=== PATIENT | female | born 1935 | race Caucasian/White ===

== ENCOUNTER → 2018-02-24 | Outpatient (CLI) | payer OTHER, BC ==
[~2018-02-24] MED LIST: ASPI81TA28 PO; BIOTCAP2; CALC-51; CHOL1000 PO; CYAN10005 PO; CYCL0.052 OP; FLUT0.15; FOLI1TAB8 PO; HYDR25TA4 PO; MULT-845; NXM/40 PO; ZOLE5INJ
--- NOTE | 2018-02-24 14:04 | DIAGNOSTIC IMAGING REPORT ---
LUMBAR SPINE W/O CONTRAST CLINICAL HISTORY: 82 years-old Female with DENGENERATIVE DISC. Chronic low back pain with history of prior vertebral plasty COMPARISON: Radiographs 06/03/2017 TECHNIQUE: Multiplanar, multi sequence MRI of the lumbar spine was performed without intravenous contrast. FINDINGS: Chronic compression deformities are seen at several levels, notably at T11-L2 with Schmorl's node seen at L4 and L5. No evidence of acute compression deformity or acute subluxation. Vertebroplasty changes are again seen at the L1 and L2 vertebral levels. Multilevel spondylitic spurring with advanced facet arthrosis and ligamentum flavum thickening as below. Mild bone marrow edema involves the left pedicle at L5, nicely seen on image 11 series 5 is likely reactive. 8 mm perineural root sleeve cyst is seen on the left at T11-T12. Signal within the imaged thoracic spinal cord appears unremarkable. Conus medullaris terminates at the L1 level. The cauda equina appear to be within normal limits. Colonic diverticulosis. No aortic aneurysm or adenopathy identified. No acute paraspinal abnormality. T12-L1: Spondylitic spurring with small circumferential disc bulge and moderate facet arthrosis. Flattening of the ventral thecal sac without significant central canal narrowing identified. There is mild left foraminal narrowing. The right foramen appears patent. These findings are seen on the sagittal images alone. L1-L2: Spondylitic spurring with moderate facet arthrosis and ligamentum flavum thickening. Small posterior disc bulge. No significant central canal or foraminal narrowing. L2-L3: Mild intervertebral disc space narrowing with posterior spondylitic spurring and small circumferential annular disc bulge. Moderate facet arthrosis with ligamentum flavum thickening. Findings narrow the AP dimension of the thecal sac to 8 mm causing mild to moderate central canal, and moderate left foraminal narrowing. The right foramen is patent. L3-L4: Mild intervertebral disc space narrowing with posterior spondylitic spurring and small circumferential annular disc bulge. Severe facet arthrosis with ligamentum flavum thickening. Thecal sac is narrowed to 8 mm in AP dimension resulting in mild to moderate central canal, mild right and mild to moderate left foraminal stenosis. L4-L5: Posterior spondylitic spurring with small circumferential annular disc bulge, severe facet arthrosis with ligamentum flavum thickening. AP dimension of the thecal sac measures 7 mm. There is moderate central canal, mild right and moderate left foraminal stenosis. L5-S1: Moderate intervertebral disc space narrowing with posterior spondylitic spurring and moderate circumferential disc bulge. Severe facet arthrosis with ligamentum flavum thickening. Mild central canal with moderate left and moderate to severe right foraminal narrowing. IMPRESSION: 1. Multiple remote compression deformities with vertebroplasty changes seen at the L1 and L2 levels. 2. Multilevel discogenic degenerative changes with severe facet arthrosis and ligamentum flavum thickening. 3. At L4-L5 there is moderate central canal, mild right and moderate left foraminal narrowing. 4. At L5-S1 there is mild central canal, moderate left and moderate to severe right foraminal narrowing. 5. Mild bone marrow edema involving the left pedicle at L5 is likely reactive. 6. No acute compression deformity identified. 7. Colonic diverticulosis. The above report was generated using voice recognition software. It may contain grammatical, syntax or spelling errors. Electronically signed by: Jonathan Saenz M.D. 02/24/2018 2:03 PM Dictated Date/Time: 02/24/2018 1:52 PM
== END | disposition home or self-care (01) ==
LOC: C.MRIBC 12:32
PROVIDERS: ATTEND Orthopaedic Surgery
DX: M51.36 Other intervertebral disc degeneration, lumbar region (principal); M47.816 Spondylosis without myelopathy or radiculopathy, lumbar region; K57.90 Diverticulosis of intestine, part unspecified, without perforation or abscess without bleeding